=== PATIENT | male | born 1970 | race Caucasian/White ===

== ENCOUNTER 2022-04-20 05:30 | Inpatient (IN) | payer OTHER ==
[~2022-04-20] VITALS: Ht 182.9 cm; Wt 116.6 kg
[2022-04-20] MEDS ORDERED: HYDROcodone-ACET 10/325MG TAB PO ONE ×2 (07:00→22:15)
[2022-04-20] MEDS ORDERED: GABAPENTIN 300 MG CAP PO ONE (07:45)
[2022-04-20] MEDS ORDERED: KETOROLAC TROMETH 30 MG/ML 1ML VIAL IV ONE (07:45)
[2022-04-20] MEDS ORDERED: CYCLOBENZAPRINE HCL 10 MG TAB PO ONE (07:45)
[2022-04-20 08:15] LABS: Basophils # (auto) 0.1 10 ^3/uL (0-0.2); Basophils % (auto) 0.6 % (0.0-2.0); Eosinophils # (auto) 0.1 10 ^3/uL (0-0.8); Eosinophils % (auto) 0.6 % (0.0-7.0); Hematocrit 46.2 % (41.0-53.0); Hemoglobin 15.2 g/dL (13.5-17.5); Lymphocytes # (auto) 2.4 10 ^3/uL (0.4-5.4); Lymphocytes % (auto) 17.4 % (10.0-50.0); Mean Corpuscular Hemoglobin 29.9 pg (28.0-32.0); Mean Corpuscular Volume 90.5 fL (80.0-100.0); Monocytes # (auto) 0.9 10 ^3/uL (0-1.3); Monocytes % (auto) 6.5 % (0.0-12.0); Neutrophils # (auto) 10.6 10 ^3/uL (1.6-8.6); Neutrophils % (auto) 74.9 % (37.0-80.0); Red Blood Cells 5.11 10^6/uL (4.5-5.90); Red Cell Distribution Width 13.2 % (11.8-14.3); White Blood Cell 14.1 10^3/uL (4.4-10.8)
[2022-04-20 08:23] LABS: Albumin 4.1 g/dL (3.4-5.0); BUN/Creatinine Ratio 25.3; Calcium 9.5 mg/dL (8.5-10.1); Potassium 4.5 mmol/L (3.5-5.1)
[2022-04-20 08:26] LABS: Bilirubin, Total 0.8 mg/dL (0.2-1.0); Total Protein 7.8 g/dL (6.4-8.2)
[2022-04-20] MEDS ORDERED: DexAMETHasone SOD PHOS 10MG/1ML VIAL INJ IV ONE (09:30)
[2022-04-20] MEDS ORDERED: methylPREDNISolone SOD SUCC 125 MG/2 ML VL IV STA (10:27)
[2022-04-20] MEDS ORDERED: DOCUSATE SOD 100 MG CAP PO PRN (11:15)
[2022-04-20] MEDS ORDERED: LORazepam 0.5 MG TAB PO PRN (11:15)
[2022-04-20] MEDS ORDERED: ACETAMINOPHEN 325 MG TAB PO PRN (11:15)
[2022-04-20] MEDS ORDERED: ONDANSETRON HCL 4 MG/2 ML VIAL IV PRN (11:15)
[2022-04-20] MEDS: SODIUM CHLORIDE 0.9% 1,000 ML IV SCH (12:25)
[2022-04-20] MEDS: HYDROcodone-ACET 5/325MG TAB PO PRN ×2 (17:16→21:13)
[2022-04-20] MEDS: CYCLOBENZAPRINE HCL 10 MG TAB PO PRN (17:56)
[2022-04-20] MEDS: MORPHINE SULFATE INJ 2 MG/ml SYRG IV PRN (22:25)
[2022-04-21] VITALS (8 sets, daily range): BP systolic 100–126; BP diastolic 64–80
[2022-04-21] MEDS: HYDROcodone-ACET 10/325MG TAB PO PRN ×5 (00:27→22:34)
[2022-04-21] MEDS: CYCLOBENZAPRINE HCL 10 MG TAB PO PRN ×3 (03:33→22:33)
[2022-04-21] MEDS: MORPHINE SULFATE INJ 2 MG/ml SYRG IV PRN ×3 (03:35→20:07)
[2022-04-21 06:03] LABS: Basophils # (auto) 0.1 10 ^3/uL (0-0.2); Basophils % (auto) 0.4 % (0.0-2.0); Eosinophils # (auto) 0 10 ^3/uL (0-0.8); Hematocrit 41.6 % (41.0-53.0); Lymphocytes # (auto) 2.1 10 ^3/uL (0.4-5.4); Lymphocytes % (auto) 15.7 % (10.0-50.0); Mean Corpuscular Hemoglobin 30.3 pg (28.0-32.0); Mean Corpuscular Hgb Conc. 33.6 g/dL (32.0-36.0); Mean Corpuscular Volume 90.2 fL (80.0-100.0); Monocytes # (auto) 1.1 10 ^3/uL (0-1.3); Monocytes % (auto) 8.2 % (0.0-12.0); Neutrophils # (auto) 10.2 10 ^3/uL (1.6-8.6); Neutrophils % (auto) 75.7 % (37.0-80.0); Nucleated Red Blood Cells % 0.1 %; Red Blood Cells 4.61 10^6/uL (4.5-5.90); White Blood Cell 13.4 10^3/uL (4.4-10.8)
[2022-04-21 06:22] LABS: Potassium 4.4 mmol/L (3.5-5.1)
[2022-04-21 06:26] LABS: BUN/Creatinine Ratio 38.9
[2022-04-21 10:21] LABS: INR 0.97 (0.9-1.15)
[2022-04-21] MEDS: SODIUM CHLORIDE 0.9% 1,000 ML IV SCH ×2 (12:24→20:49)
[2022-04-22] MEDS: MORPHINE SULFATE INJ 2 MG/ml SYRG IV PRN ×6 (00:18→22:04)
[2022-04-22] MEDS: HYDROcodone-ACET 10/325MG TAB PO PRN ×5 (02:31→19:56)
[2022-04-22 05:00] VITALS: BP 136/85
[2022-04-22] MEDS: CYCLOBENZAPRINE HCL 10 MG TAB PO PRN ×3 (06:32→15:32)
[2022-04-22 08:00] VITALS: BP 133/83
[2022-04-22 09:00] VITALS: BP 133/83
[2022-04-22] MEDS: SODIUM CHLORIDE 0.9% 1,000 ML IV SCH (13:34)
[2022-04-22 17:00] VITALS: BP 135/85
[2022-04-22 22:00] VITALS: BP 128/78
[2022-04-23] VITALS (7 sets, daily range): BP systolic 115–144; BP diastolic 75–92
[2022-04-23] MEDS: HYDROcodone-ACET 10/325MG TAB PO PRN ×6 (00:35→20:27)
[2022-04-23] MEDS: CYCLOBENZAPRINE HCL 10 MG TAB PO PRN ×3 (00:35→16:22)
[2022-04-23] MEDS: MORPHINE SULFATE INJ 2 MG/ml SYRG IV PRN ×6 (01:59→22:38)
[2022-04-23] MEDS: SODIUM CHLORIDE 0.9% 1,000 ML IV SCH ×2 (06:02→22:35)
[2022-04-24] MEDS: HYDROcodone-ACET 10/325MG TAB PO PRN ×3 (00:05→23:44)
[2022-04-24] MEDS: SODIUM CHLORIDE 0.9% 1,000 ML IV SCH (04:00)
[2022-04-24] MEDS: MORPHINE SULFATE INJ 2 MG/ml SYRG IV PRN ×2 (04:06→08:23)
[2022-04-24 05:41] VITALS: BP 150/85
[2022-04-24 06:55] LABS: Chloride 104 mmol/L (98-107); Potassium 4.7 mmol/L (3.5-5.1); Sodium 137 mmol/L (136-145)
[2022-04-24 07:08] LABS: Anion Gap 14 (5-15); BUN/Creatinine Ratio 35.5; Blood Urea Nitrogen 22 mg/dL (7-18); Calcium 8.8 mg/dL (8.5-10.1); Carbon Dioxide 19 mmol/L (21-32); GFR African American 177 mL/min; GFR Non-African American 146 mL/min; Glucose 91 mg/dL (74-106)
[2022-04-24 07:23] LABS: Basophils # (auto) 0 10 ^3/uL (0-0.2); Basophils % (auto) 0.3 % (0.0-2.0); Eosinophils # (auto) 0.1 10 ^3/uL (0-0.8); Eosinophils % (auto) 0.5 % (0.0-7.0); Hematocrit 50.3 % (41.0-53.0); Hemoglobin 16.9 g/dL (13.5-17.5); Lymphocytes # (auto) 1.5 10 ^3/uL (0.4-5.4); Lymphocytes % (auto) 8.7 % (10.0-50.0); Mean Corpuscular Hemoglobin 30.8 pg (28.0-32.0); Mean Corpuscular Hgb Conc. 33.5 g/dL (32.0-36.0); Mean Corpuscular Volume 91.9 fL (80.0-100.0); Monocytes # (auto) 1.1 10 ^3/uL (0-1.3); Monocytes % (auto) 6.6 % (0.0-12.0); Neutrophils # (auto) 14.1 10 ^3/uL (1.6-8.6); Neutrophils % (auto) 83.9 % (37.0-80.0); Red Blood Cells 5.47 10^6/uL (4.5-5.90); Red Cell Distribution Width 12.7 % (11.8-14.3); White Blood Cell 16.8 10^3/uL (4.4-10.8)
[2022-04-24 08:00] VITALS: BP 125/90
[2022-04-24 09:00] VITALS: BP 125/90
[2022-04-24] MEDS ORDERED: LIDOCAINE 2% (LOCAL ANESTH.) PF 5ml SDV ONE ×4 (13:35→17:30)
[2022-04-24] MEDS ORDERED: ONDANSETRON HCL 4 MG/2 ML VIAL ONE (13:41)
[2022-04-24] MEDS ORDERED: DexAMETHasone SOD PHOS 10MG/1ML VIAL INJ ONE (13:41)
[2022-04-24] MEDS ORDERED: PROPOFOL 10 MG/ML 20 ML IV ONE ×4 (13:41→17:03)
[2022-04-24] MEDS ORDERED: ROCURONIUM 10MG/ML 10ML VIAL IV ONE ×3 (13:42→15:10)
[2022-04-24] MEDS ORDERED: GLYCOPYRROLATE 0.2 MG/ML 1ML VIAL ONE (13:43)
[2022-04-24] MEDS ORDERED: STERILE WATER 10 ML ONE ×2 (13:43→14:46)
[2022-04-24] MEDS ORDERED: ceFAZolin 1GM/50ML 100 ML IV ONE (14:04)
[2022-04-24] MEDS ORDERED: fentaNYL CITRATE 100 MCG/2 ML VL ONE (14:07)
[2022-04-24] MEDS ORDERED: SUGAMMADEX 200mg/2ml Vial (100MG/ML) IV ONE (14:11)
[2022-04-24] MEDS ORDERED: ESMOLOL HCL 10 ML IV ONE (14:27)
[2022-04-24] MEDS ORDERED: ONDANSETRON HCL 4 MG/2 ML VIAL IV PRN ×2 (18:00→18:30)
[2022-04-24] MEDS ORDERED: ACETAMINOPHEN 325 MG TAB PO PRN (18:00)
[2022-04-24] MEDS ORDERED: DOCUSATE SOD 100 MG CAP PO PRN (18:00)
[2022-04-24] MEDS ORDERED: MORPHINE SULFATE INJ 2 MG/ml SYRG IV PRN ×2 (18:00)
[2022-04-24] MEDS ORDERED: MILK OF MAGNESIA 30ML SUSP PO PRN (18:00)
[2022-04-24] MEDS ORDERED: NITROGLYCERIN 0.4 MG SL TAB SL PRN (18:00)
[2022-04-24] MEDS ORDERED: fentaNYL CITRATE 100 MCG/2 ML VL IV PRN (18:30)
[2022-04-24] MEDS ORDERED: hydrALAZINE HCL 20 MG/ML VL IV PRN (18:30)
[2022-04-24] MEDS ORDERED: LABETALOL HCL 5 MG/ML 4ML SYRINGE IV PRN (18:30)
[2022-04-24] MEDS ORDERED: NALOXONE HCL 0.4 MG/ML VIAL IV PRN (18:30)
[2022-04-24] MEDS ORDERED: FLUMAZENIL 0.1 MG/ML INJ 10ML MDV IV PRN (18:30)
[2022-04-24] MEDS ORDERED: ePHEDrine SULFATE 50 MG/ML AMP IV PRN (18:30)
[2022-04-24] MEDS: HYDROmorphone HCL 2 MG/ML VL/or syr IV PRN ×2 (18:54→19:04)
[2022-04-24 22:00] VITALS: BP_SYST 144; BP_SYST 145; BP_DIAS 84
[2022-04-24] MEDS: D5W/SOD CHLO 0.9% 1,000 ML IV SCH (22:03)
[2022-04-24] MEDS: ceFAZolin 1GM/50ML 50 ML IV SCH (22:04)
[2022-04-24] MEDS: CYCLOBENZAPRINE HCL 10 MG TAB PO SCH (22:04)
[2022-04-25 05:00] VITALS: BP 119/81
[2022-04-25] MEDS: CYCLOBENZAPRINE HCL 10 MG TAB PO SCH ×3 (06:00→21:33)
[2022-04-25] MEDS: ceFAZolin 1GM/50ML 50 ML IV SCH (06:06)
[2022-04-25] MEDS: D5W/SOD CHLO 0.9% 1,000 ML IV SCH (07:54)
[2022-04-25 09:00] VITALS: BP 115/81
[2022-04-25] MEDS: HYDROcodone-ACET 10/325MG TAB PO PRN ×2 (15:28→23:56)
[2022-04-25 16:45] VITALS: BP 116/61
[2022-04-25 22:00] VITALS: BP 128/76
[2022-04-26] MEDS: CYCLOBENZAPRINE HCL 10 MG TAB PO SCH ×3 (05:20→21:08)
[2022-04-26] MEDS: HYDROcodone-ACET 10/325MG TAB PO PRN ×3 (07:05→21:08)
[2022-04-26 08:52] VITALS: BP 105/72
[2022-04-26 13:00] VITALS: BP 127/79
[2022-04-26 16:40] VITALS: BP 120/80
[2022-04-26 22:00] VITALS: BP 111/67
[2022-04-27 05:00] VITALS: BP 120/68
[2022-04-27] MEDS: CYCLOBENZAPRINE HCL 10 MG TAB PO SCH ×2 (05:52→14:00)
[2022-04-27 08:00] VITALS: BP 123/80
[2022-04-27] MEDS: HYDROcodone-ACET 10/325MG TAB PO PRN ×2 (08:15→14:35)
[2022-04-27] MEDS ORDERED: HYDR-4798 PO (11:19)
[2022-04-27] MEDS ORDERED: MOMLQ PO (11:19)
[2022-04-27 13:00] VITALS: BP 143/93
[2022-04-27 13:21] VITALS: BP 123/80
== END 2022-04-27 15:53 | disposition home or self-care (01) | DRG 454 ==
LOC: EDBD 05:30 → ER 05:30 → OVERFLOW 11:11 → CENTRAL 21:19 → OVERFLOW 21:25 → WEST WING 23:48 → TELE-WESTW 04-24 14:52
PROVIDERS: ADMIT Hospitalist; ATTEND Family Medicine
PROC: 0SG0071 Fusion of Lumbar Vertebral Joint with Autologous Tissue Substitute, Posterior Approach, Posterior Column, Open Approach (ICD-10-PCS; 2022-04-24)
PROC: 01NB0ZZ Release Lumbar Nerve, Open Approach (ICD-10-PCS; 2022-04-24)
PROC: 00NY0ZZ Release Lumbar Spinal Cord, Open Approach (ICD-10-PCS; 2022-04-24)
PROC: 0SB20ZZ Excision of Lumbar Vertebral Disc, Open Approach (ICD-10-PCS; 2022-04-24)
PROC: 4A11X4G Monitoring of Peripheral Nervous Electrical Activity, Intraoperative, External Approach (ICD-10-PCS; 2022-04-24)
PROC: 0SG00AJ Fusion of Lumbar Vertebral Joint with Interbody Fusion Device, Posterior Approach, Anterior Column, Open Approach (ICD-10-PCS; principal; 2022-04-24 14:11)
DX: M51.16 Intervertebral disc disorders with radiculopathy, lumbar region (principal); M51.06 Intervertebral disc disorders with myelopathy, lumbar region; M48.061 Spinal stenosis, lumbar region without neurogenic claudication; G89.29 Other chronic pain; I50.812 Chronic right heart failure; Z20.822 Contact with and (suspected) exposure to COVID-19
CPT/HCPCS: 36415; 71045; 72100; 72131; 72148; 76000; 80048; 80053; 85025; 85610; 85730; 86850; 86900; 86901; 87426; 93306; 96374; 96375; 97110; 97116; 97163; 97530; 99291; G0378; J0690; J1100; J1885; J2001; J2405; J2704

== ENCOUNTER 2022-05-28 11:17 | Inpatient (IN) | payer OTHER ==
[~2022-05-28] VITALS: Ht 182.9 cm; Wt 169.1 kg
[~2022-05-28 11:17] MED LIST: HYDR-4798 PO; MOMLQ PO
[2022-05-28 12:29] LABS: Basophils # (auto) 0 10 ^3/uL (0-0.2); Eosinophils # (auto) 0.1 10 ^3/uL (0-0.8); Hematocrit 36.5 % (41.0-53.0); Monocytes # (auto) 0.5 10 ^3/uL (0-1.3); Neutrophils # (auto) 5.1 10 ^3/uL (1.6-8.6); White Blood Cell 7.4 10^3/uL (4.4-10.8)
[2022-05-28 12:30] LABS: Basophils % (auto) 0.6 % (0.0-2.0); Eosinophils % (auto) 0.9 % (0.0-7.0); Lymphocytes # (auto) 1.7 10 ^3/uL (0.4-5.4); Lymphocytes % (auto) 23.3 % (10.0-50.0); Mean Corpuscular Hemoglobin 29.5 pg (28.0-32.0); Mean Corpuscular Volume 89.3 fL (80.0-100.0); Neutrophils % (auto) 68.2 % (37.0-80.0); Nucleated Red Blood Cells % 0.1 %; Red Blood Cells 4.09 10^6/uL (4.5-5.90); Red Cell Distribution Width 13.1 % (11.8-14.3)
[2022-05-28 12:37] LABS: Albumin 3.5 g/dL (3.4-5.0); Calcium 9.6 mg/dL (8.5-10.1); Potassium 5.4 mmol/L (3.5-5.1)
[2022-05-28 12:41] LABS: BUN/Creatinine Ratio 23.3 (10.0-20.0); Bilirubin, Total 0.3 mg/dL (0.2-1.0); Total Protein 7.3 g/dL (6.4-8.2)
[2022-05-28] MEDS ORDERED: MORPHINE SULFATE INJ 2 MG/ml SYRG IV PRN (13:30)
[2022-05-28] MEDS ORDERED: NITROGLYCERIN 0.4 MG SL TAB SL PRN (13:30)
[2022-05-28] MEDS ORDERED: DEXTROSE (50%) 50ML SYRG IV ONE (13:45)
[2022-05-28] MEDS ORDERED: FUROSEMIDE 20 MG/2 ML VIAL IV ONE (13:45)
[2022-05-28] MEDS ORDERED: SODIUM BICARBONATE 8.4% INJ 50ML SYRINGE IV ONE (13:45)
[2022-05-28] MEDS ORDERED: InsuLIN REG 1unit/0.01ml Soln (100units/ml) IV ONE (13:45)
[2022-05-28 21:56] LABS: Folate (Folic Acid) 20.9 ng/mL (5.38-24)
[2022-05-28 23:32] VITALS: BP 129/70
[2022-05-29] VITALS: BP 129/70
[2022-05-29] MEDS ORDERED: MELA3TAB27 PO (00:51)
[2022-05-29 05:23] LABS: Basophils # (auto) 0 10 ^3/uL (0-0.2); Basophils % (auto) 0.4 % (0.0-2.0); Eosinophils # (auto) 0.1 10 ^3/uL (0-0.8); Hemoglobin 11.6 g/dL (13.5-17.5); White Blood Cell 7.5 10^3/uL (4.4-10.8)
[2022-05-29 05:25] LABS: Eosinophils % (auto) 0.9 % (0.0-7.0); Hematocrit 34.4 % (41.0-53.0); Lymphocytes # (auto) 2.4 10 ^3/uL (0.4-5.4); Lymphocytes % (auto) 31.9 % (10.0-50.0); Mean Corpuscular Hemoglobin 29.4 pg (28.0-32.0); Mean Corpuscular Hgb Conc. 33.6 g/dL (32.0-36.0); Mean Corpuscular Volume 87.6 fL (80.0-100.0); Monocytes # (auto) 0.6 10 ^3/uL (0-1.3); Monocytes % (auto) 8.5 % (0.0-12.0); Neutrophils # (auto) 4.4 10 ^3/uL (1.6-8.6); Neutrophils % (auto) 58.3 % (37.0-80.0); Red Blood Cells 3.93 10^6/uL (4.5-5.90); Red Cell Distribution Width 13.7 % (11.8-14.3)
[2022-05-29 05:43] VITALS: BP 115/72
[2022-05-29 05:47] LABS: Albumin 3.2 g/dL (3.4-5.0); Calcium 9.1 mg/dL (8.5-10.1); Potassium 4.2 mmol/L (3.5-5.1)
[2022-05-29 05:51] LABS: Bilirubin, Total 0.4 mg/dL (0.2-1.0); Total Protein 6.8 g/dL (6.4-8.2)
[2022-05-29 08:31] VITALS: BP 125/72
[2022-05-29] MEDS ORDERED: ENOXAPARIN SOD 40 MG/0.4 ML SYRINGE SC SCH (10:00)
== END 2022-05-29 14:17 | disposition home or self-care (01) | DRG 69 ==
LOC: ER 11:17 → TELE 13:28 → TELE-WESTW 23:32
PROVIDERS: ADMIT Registered Nurse; ATTEND Nurse Practitioner Acute Care
DX: G45.9 Transient cerebral ischemic attack, unspecified (principal); F11.20 Opioid dependence, uncomplicated; Z68.43 Body mass index [BMI] 50.0-59.9, adult; T41.45XA Adverse effect of unspecified anesthetic, initial encounter; E66.01 Morbid (severe) obesity due to excess calories; E87.5 Hyperkalemia; Z20.822 Contact with and (suspected) exposure to COVID-19; G89.29 Other chronic pain; M54.50 Low back pain, unspecified; R47.81 Slurred speech; Y92.89 Other specified places as the place of occurrence of the external cause
CPT/HCPCS: 36415; 70450; 70551; 71045; 80053; 82607; 82746; 84132; 84443; 84484; 85025; 87426; 93005; 93886; G0378

== ENCOUNTER 2025-01-05 17:22 | Emergency (ER) | payer BC, MEDICAID ==
[~2025-01-05] VITALS: Ht 182.9 cm; Wt 113.6 kg
[~2025-01-05 17:22] MED LIST changes: +MELA3TAB27 PO
--- NOTE | 2025-01-05 19:05 | DVH ---
CLINICAL INDICATION: lumbar back pain TECHNIQUE: 3 radiographic views of the were obtained of the lumbar spine Comparison: LUMB2 on DOS: 04/24/22, LUMBAR SPINE LTD on DOS: 04/24/22 FINDINGS/IMPRESSION: Pedicle screws and rods in place at L4-5Intervertebral spacer also position.. Bony alignment is normal There are no compressed vertebra..
[2025-01-05 19:36] LABS: Urine Protein, UAD TRACE (Negative)
[2025-01-05 19:36] LABS: Hematocrit 45.3 % (41.0-53.0); Hemoglobin 15.4 g/dL (13.5-17.5); Mean Corpuscular Hemoglobin 30.9 pg (28.0-32.0); Mean Corpuscular Volume 90.7 fL (80.0-100.0); Nucleated Red Blood Cells % 0.7 %
[2025-01-05 19:43] LABS: Chloride 106 mmol/L (98-107); Potassium 4.2 mmol/L (3.5-5.1); Sodium 139 mmol/L (136-145)
[2025-01-05 19:44] LABS: Anion Gap 10 (5-15); Calcium 9.9 mg/dL (8.7-10.4); Carbon Dioxide 23 mmol/L (20-31)
[2025-01-05 19:49] LABS: BUN/Creatinine Ratio 17.4 (10.0-20.0); Blood Urea Nitrogen 12 mg/dL (9-23); Glucose 100 mg/dL (74-106)
[2025-01-05] MEDS ORDERED: ACE3T PO ×2 (21:18→21:21)
[2025-01-05] MEDS ORDERED: CYCL-837 PO (21:18)
[2025-01-05] MEDS ORDERED: CYCL-614 PO (21:21)
--- NOTE | 2025-01-05 21:22 | ED.PDOC ---
Back pain HPI HPI Comments 54-year-old male presents to ER with complaints of back pain x6 days. 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 Denies any trauma/falls and rates his current back pain a 10/10 to left lower lumbar region with radiation down left posterior leg. Reports he has been taking ibuprofen and Tylenol for his pain without relief and presents to ER in wheelchair in mild distress and does report chronic numbness/tingling down bilateral posterior legs. 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 VERIFIED Home Meds Active Scripts Cyclobenzaprine HCl (Cyclobenzaprine Hydrochlo) 5 Mg Tab, 5 MG PO QHSP, #14 TAB 0 Refills Prov:FLORENCE SANDERS 01/05/25 Acetaminophen W/ Codeine (Tylenol W/Cod #3) 1 Tab Tb, 1 TAB PO Q6HPRN, #10 TAB 0 Refills Prov:FLORENCE SANDERS 01/05/25 Cyclobenzaprine Hcl (Cyclobenzaprine Hcl) 5 Mg Tab, 1 TAB PO QHSP, #14 TAB Prov:FLORENCE SANDERS 01/05/25 Hydrocodone-Acetaminophen (Hydrocodone Bitartrate/AC 10-325 mg) 1 Tab Tab, 1 TAB PO TID PRN, #30 TAB Prov:SRUTHI POTTER MD 04/27/22 Magnesium Hydroxide (MILK OF MAGNESIA ORAL SUSPENSION) 30 Ml Ss, 30 ML PO BID PRN, #300 ML Prov:SRUTHI POTTER MD 04/27/22 Reported Medications Melatonin (KP MELATONIN) 3 Mg Tab, PO PRN for FOR INSOMNIA, #30 TAB 2 Refills 05/29/22 Information Source: Patient Mode of Arrival: Wheelchair Past Medical History Past Medical History (Other): Chronic lumbar back pain Neuropathy Surgical History (Other): Lumbar spinal surgery Family History Family History: Unknown Social History Smoker: Non-Smoker Alcohol: Denies ETOH Use Drugs: Denies Drug Use Lives In: Home Constitutional: denies: chills, diaphoresis, fatigue, fever, malaise, sweats, weakness, others EENTM: denies: blurred vision, double vision, ear bleeding, ear discharge, ear drainage, ear pain, ear ringing, eye pain, eye redness, hearing loss, mouth pain, mouth swelling, nasal discharge, nose bleeding, nose congestion, nose pain, photophobia, tearing, throat pain, throat swelling, voice changes, others Respiratory: denies: cough, hemoptysis, orthopnea, SOB at rest, shortness of breath, SOB with excertion, stridor, wheezing, others Cardiovascular: denies: chest pain, dizzy spells, diaphoresis, Dyspnea on exertion, edema, irregular heart beat, left arm pain, lightheadedness, palpitations, PND, syncope, others Gastrointestinal: denies: abdomen distended, abdominal pain, blood streaked bowels, constipated, diarrhea, dysphagia, difficulty swallowing, hematemesis, melena, nausea, poor appetite, poor fluid intake, rectal bleeding, rectal pain, vomiting, others Genitourinary: denies: burning, dysuria, flank pain, frequency, hematuria, incontinence, penile discharge, penile sore, pain, testicle pain, testicle swelling, urgency, others Neurological: denies: dizziness, fainting, headache, left sided numbness, left sided weakness, numbness, paresthesia, pre-existing deficit, right sided numbness, right sided weakness, seizure, speech problems, tingling, tremors, weakness, others Musculoskeletal: reports: others (As stated in HPI) Integumetry: denies: bruises, change in color, change in hair/nails, dryness, laceration, lesions, lumps, rash, wounds, others Allergic/Immunocompromised: denies: Difficulty Healing, Frequent Infections, Hives, Itching, others Hematologic/Lymphatic: denies: anemia, blood clots, easy bleeding, easy bruising, swollen glands, others Endocrine: denies: excessive hunger, excessive sweating, excessive thirst, excessive urination, flushing, intolerance to cold, intolerance to heat, unexplained weight gain, unexplained weight loss, others Psychiatric: denies: anxiety, bipolar disorder, depression, hopeless, panic disorder, schizophrenia, sleepless, suicidal, others Physical Exam General Appearance: No Apparent Distress, Obese HEENT: PERRL/EOMI Neck: Full Range of Motion, Non-Tender, Normal Respiratory: Chest Non-Tender, Lungs Clear, No Accessory Muscle Use, No Respiratory Distress, Normal Breath Sounds Cardiovascular: No Murmur, No Gallop, Regular Rate/Rhythm Breast Exam: Deferred Gastrointestinal: Non Tender, No Pulsatile Mass, Soft Genitalia: Deferred Pelvic: Deferred Rectal: Deferred Extremities: Normal capillary refill, Normal range of motion Musculoskeletal : Extremity Location: Back (TTP to left lower lumbar paraspinals noted. Scar noted from previous lumbar spinal surgery. 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 Was a procedure done?: No Sedation Sedation?: No Back Pain Differential Dx Differential Diagnosis: AAA, Fracture, Urinary Tract Infection, Other (neurovascular injury) X-Ray, Labs, Meds, VS Vital Signs Date Time Temp Pulse Resp B/P (MAP) Pulse Ox O2 Delivery O2 Flow Rate FiO2 01/05/25 21:27 73 16 144/90 01/05/25 17:23 99.0 84 18 157/91 98 99.0 Lab Test 01/05/25 19:21 01/05/25 17:48 Range/Units White Blood Count 9.8 4.4-10.8 10^3/uL Red Blood Count 5.00 4.5-5.90 10^6/uL Hemoglobin 15.4 13.5-17.5 g/dL Hematocrit 45.3 41.0-53.0 % Mean Corpuscular Volume 90.7 80.0-100.0 fL Mean Corpuscular Hemoglobin 30.9 28.0-32.0 pg Mean Corpuscular Hemoglobin Concent 34.1 32.0-36.0 g/dL Red Cell Distribution Width 13.2 11.8-14.3 % Platelet Count 390 140-450 10^3/uL Mean Platelet Volume 7.0 6.9-10.8 fL Neutrophils (%) (Auto) 74.6 37.0-80.0 % Lymphocytes (%) (Auto) 19.9 10.0-50.0 % Monocytes (%) (Auto) 5.0 0.0-12.0 % Eosinophils (%) (Auto) 0.2 0.0-7.0 % Basophils (%) (Auto) 0.3 0.0-2.0 % Neutrophils # (Auto) 7.3 1.6-8.6 10 ^3/uL Lymphocytes # (Auto) 1.9 0.4-5.4 10 ^3/uL Monocytes # (Auto) 0.5 0-1.3 10 ^3/uL Eosinophils # (Auto) 0 0-0.8 10 ^3/uL Basophils # (Auto) 0 0-0.2 10 ^3/uL Nucleated Red Blood Cells 0.7 % Sodium Level 139 136-145 mmol/L Potassium Level 4.2 3.5-5.1 mmol/L Chloride Level 106 98-107 mmol/L Carbon Dioxide Level 23 20-31 mmol/L Anion Gap 10 5-15 Blood Urea Nitrogen 12 9-23 mg/dL Creatinine 0.69 L 0.700-1.30 mg/dL Glomerular Filtration Rate Calc 111 >90 mL/min BUN/Creatinine Ratio 17.4 10.0-20.0 Serum Glucose 100 74-106 mg/dL Calcium Level 9.9 8.7-10.4 mg/dL Urine Color Yellow Yellow Urine Clarity Clear Clear Urine pH 5.5 5.0-9.0 Urine Specific [place] 1.038 H 1.001-1.035 Urine Protein Trace H Negative Urine Ketones 1+ H Negative Urine Blood Negative Negative /uL Urine Nitrite Negative Negative Urine Bilirubin Negative Negative Urine Urobilinogen Normal Negative mg/dL Urine Leukocyte Esterase Negative Negative /uL Urine RBC 1 0 - 3 /hpf Urine Microscopic WBC 1 0-3 /HPF Urine Squamous Epithelial Cells Few <5 /hpf Urine Bacteria None seen None Seen /hpf Urine Mucus Few None Seen Urine Glucose Normal Normal mg/dL Current Medications Medications (Trade) Dose Ordered Sig/Jimbo Route Start Time Stop Time Status Last Admin Hydromorphone HCl (Dilaudid Injection) 1 mg ONCE ONCE IM 01/05/25 21:15 01/05/25 21:16 DC 01/05/25 21:27 Ondansetron HCl (Zofran Po) 4 mg ONCE ONCE PO 01/05/25 21:15 01/05/25 21:16 DC 01/05/25 21:24 PATIENT: MEGAN KNENEDY ACCT: [id number] UNIT: [id number] : 1970 LOC: ER ROOM / BED: / AGE / SEX: 54 / M ADM STATUS: REG ER SERVICE 16 ORDERING PHYSICIAN: FLORENCE SANDERS PROCEDURE(s): LUMB2 - LUMBAR SPINE 3 VIEW REASON: lumbar back pain ORDER NUMBER(s): [id number], ACCESSION NUMBER(s): [id number] CLINICAL INDICATION: lumbar back pain TECHNIQUE: 3 radiographic views of the were obtained of the lumbar spine Comparison: LUMB2 on DOS: 04/24/22, LUMBAR SPINE LTD on DOS: 04/24/22 FINDINGS/IMPRESSION: Pedicle screws and rods in place at L4-5Intervertebral spacer also position.. Bony alignment is normal There are no compressed vertebra.. ATED BY: BRIAN STONE Jr., DO DICTATED DATE/TIME: 01/05/251902 SIGNED BY: BRIAN STONE Jr., SIGNED DATE/TIME: 01/05/251902 CC: CBC reviewed-unremarkable BMP reviewed-unremarkable Urinalysis reviewed without any significant abnormalities Lumbar spine x-ray reviewed Previous chart visits reviewed Dilaudid 1 mg IM ordered Zofran 4 mg p.o. ordered Patient neurovascularly intact, in no distress and reported improvement in symptoms prior to discharge Advised on rest/ no strenuous activity Advised to follow up with PCP and pain management in 1-2 days Patient verbalized understanding and agreeable with current plan of care Advised to return to ER immediately if symptoms worsen Images Reviewed?: Images reviewed and evaluated by me Time of 1ST Reevaluation: 20:54 Reevaluation 1ST: N/A Patient Education/Counseling: Diagnosis, Treatment, Prognosis, Need For Follow Up Family Education/Counseling: Diagnosis, Treatment, Prognosis, Need For Follow Up SEPSIS Sepsis Screen Date sepsis recognized/suspect: Jan 05, 2025 Time Sepsis recognized/suspect: 1822 Recent Procedure: No On Antibiotic Therapy: No Respiratory Rate >20: No Heart Rate >90: No Temp<36 C (96.8 F) or >38.3 C: No SBP <90 or MAP <65 mmHG: No New Acute Mental Status Change: No Is the patient on CPAP, BIPAP,: No Physician Orders Lumbar Spine 3 View (01/05/25 18:17) Vital Signs Date Time Temp Pulse Resp B/P (MAP) Pulse Ox O2 Delivery O2 Flow Rate FiO2 01/05/25 21:27 73 16 144/90 01/05/25 17:23 99.0 84 18 157/91 98 99.0 Laboratory Tests Test 01/05/25 19:21 White Blood Count 9.8 10^3/uL (4.4-10.8) Medications Medications Dose Ordered Sig/Jimbo Route Start Time Stop Time Status Last Admin Dose Admin Hydromorphone HCl 1 mg ONCE ONCE IM 01/05/25 21:15 01/05/25 21:16 DC 01/05/25 21:27 Ondansetron HCl 4 mg ONCE ONCE PO 01/05/25 21:15 01/05/25 21:16 DC 01/05/25 21:24 Departure 1 Departure Time of Disposition: 21:16 Impression: Primary Impression: Acute exacerbation of chronic low back pain Disposition: 01 HOME / SELF CARE / HOMELESS Condition: Stable e-Prescriptions Cyclobenzaprine HCl (Cyclobenzaprine Hydrochlo) 5 Mg Tab 5 MG PO QHSP, #14 TAB 0 Refills Prov: FLORENCE SANDERS 01/05/25 Acetaminophen W/ Codeine (Tylenol W/Cod #3) 1 Tab Tb 1 TAB PO Q6HPRN, #10 TAB 0 Refills Prov: FLORENCE SANDERS 01/05/25 Discharged With: Significant Other Critical Care Note Critical Care Time?: No Stability Stability form required: No Heart Score Heart Score: Heart Score Response (Comments) Value History N/A 0 EKG N/A 0 Age N/A 0 Risk Factors N/A 0 Troponin N/A 0 Total 0 FLORENCE SANDERS Jan 05, 2025 21:22
[2025-01-05] MEDS: ONDANSETRON ODT 4 MG TAB PO ONE (21:24)
[2025-01-05 21:27] VITALS: TEMP 98.7; O2SAT 94
[2025-01-05] MEDS: HYDROmorphone HCL 2 MG/ML VL/or syr IM ONE (21:27)
[2025-01-05 22:09] VITALS: BP 125/80; PULSE 69; RESP 16
== END 2025-01-05 22:10 | disposition home or self-care (01) ==
LOC: ER 17:22
DX: G89.29 Other chronic pain (principal); Z79.899 Other long term (current) drug therapy
CPT/HCPCS: 36415; 72100; 80048; 81001; 85025; 96372; 99284; J1171; Q0162